=== PATIENT | male | born 1990 | race Caucasian/White ===

== ENCOUNTER 2024-02-08 14:27 | Outpatient (CLI) | payer BC ==
[~2024-02-08 14:27] MED LIST: Iopamidol 370 76% 100 ML VIAL ONE
== END 2024-02-08 14:28 | disposition home or self-care (01) ==
LOC: CSHCT 14:27
PROVIDERS: ATTEND Family Medicine
DX: R07.81 Pleurodynia (principal)
CPT/HCPCS: 71275; Q9967